=== PATIENT | male | born 1995 | race African-American/Black ===

== ENCOUNTER 2022-11-12 19:53 | Inpatient (IN) | payer SELFPAY ==
[2022-11-12] MEDS ORDERED: HumaLOG 300 UNITS/3 ML VIAL SC SCH (20:30)
[2022-11-12] MEDS: Lactated Ringer's 1,000 ML IV SCH (20:36)
[2022-11-12] MEDS ORDERED: Acetaminophen 325 MG TAB PO PRN (21:23)
[2022-11-12] MEDS ORDERED: Ondansetron PF 4 MG/2 ML Vial IVP PRN (21:23)
[2022-11-12] MEDS ORDERED: Glucagon 1 MG/ML KIT IM PRN (21:23)
[2022-11-12] MEDS ORDERED: Dextrose 5% in Water 1,000 ML IV PRN (21:23)
[2022-11-12] MEDS ORDERED: Calcium Carbonate 500 MG ChewTAB PO PRN (21:23)
[2022-11-12] MEDS ORDERED: Dextrose 50% Abboject 50 ML SYRINGE SLOW IVP PRN (21:23)
[2022-11-12] MEDS ORDERED: Senokot S 8.6-50 MG TAB PO PRN (21:23)
[2022-11-12] MEDS ORDERED: Lisinopril 5 MG TAB PO SCH (21:45)
[2022-11-12] MEDS ORDERED: metFORMIN 500 MG TAB PO SCH (21:45)
[2022-11-12 22:24] VITALS: BMI 32.3
[2022-11-12] MEDS: HumaLOG 300 UNITS/3 ML VIAL SC PRN (23:57)
[2022-11-13 04:05] LABS: Phosphorus 3.3 mg/dL (2.3-4.7)
[2022-11-13 04:06] LABS: #Eosinphils 0.2 10x3/uL (0.0-0.5); #Monocytes 0.7 10x3/uL (0.0-1.1); #Neutrophils 1.6 10x3/uL (1.5-8.4); %Basophils 0.9 % (0.0-2.0); %Eosinophils 4.6 % (0.0-6.0); %Lymphocytes 42.4 % (18.0-47.0); %Monocytes 15.9 % (0.0-10.0); %Neutrophils 34.7 % (40.0-75.0); Hematocrit 38.3 % (38.8-50.0); Hemoglobin 13.4 g/dL (13.5-17.5); Mean Corpuscular Hemoglobin 26.7 pg (27.0-33.0); Mean Corpuscular Volume 76.3 fl (81.2-95.1); Mean Platelet Volume 10.2 fl (7.4-10.4); Platelet Count 258 10x3/uL (150-450); RBC Distribution Width 11.7 % (11.5-14.5); Red Blood Cell (RBC) Count 5.02 10x6/uL (4.32-5.72); White Blood Cell (WBC) Count 4.6 10x3/uL (3.5-10.5)
[2022-11-13 04:14] LABS: ALT (SGPT) 33 U/L (8-55); AST (SGOT) 44 U/L (5-34); Albumin 4.1 g/dL (3.5-5.0); Alkaline Phosphatase 107 U/L (40-110); Anion Gap 17 mmol/L (10-20); BUN (Urea Nitrogen) 11 mg/dL (8.9-20.6); Bilirubin, Total 0.7 mg/dL (0.2-1.2); Calc. Creatinine Clearance 149 mL/min (70-130); Calcium 9.7 mg/dL (7.8-10.44); Carbon Dioxide 22 mmol/L (22-29); Chloride 99 mmol/L (98-107); Cholesterol 153 mg/dl (< 200 Desired); Estimated GFR 108; Globulin 3.6 g/dL (2.4-3.5); Glucose 338 mg/dL (70-105); HDL Cholesterol 22 mg/dL (>60 Neg Risk); Magnesium 1.8 mg/dL (1.6-2.6); Potassium 4.2 mmol/L (3.5-5.1); Protein, Total 7.7 g/dL (6.0-8.3); Sodium 134 mmol/L (136-145); Triglycerides 572 mg/dL (Less than 150)
[2022-11-13] MEDS: Lactated Ringer's 1,000 ML IV SCH (04:24)
[2022-11-13] MEDS: HumaLOG 300 UNITS/3 ML VIAL SC PRN ×3 (04:24→11:37)
[2022-11-13 05:38] LABS: LDL Cholesterol, Calculated 17 mg/dL
[2022-11-13] MEDS ORDERED: Magnesium Sulfate/D5W 1 GM/100 ML BAG IVPB SCH (06:00)
[2022-11-13] MEDS: metFORMIN 500 MG TAB PO SCH ×2 (08:11→19:13)
[2022-11-13] MEDS ORDERED: Lisinopril 5 MG TAB PO SCH (09:00)
[2022-11-13] MEDS ORDERED: Lantus 1000 UNITS/10 ML VIAL SC SCH (11:00)
[2022-11-13] MEDS: HumaLOG 300 UNITS/3 ML VIAL SC SCH ×2 (12:12→16:18)
[2022-11-13 17:21] LABS: Hemoglobin A1c 10.5 % (4.0-6.0)
[2022-11-13] MEDS: Atorvastatin Calcium 40 MG TAB PO SCH (19:47)
[2022-11-13] MEDS: Insulin Regular 300 UNITS/3 ML VIAL SC PRN (19:47)
[2022-11-14] MEDS: Insulin Regular 300 UNITS/3 ML VIAL SC PRN ×5 (00:10→22:38)
[2022-11-14 03:56] LABS: #Basophils 0.1 10x3/uL (0.0-0.2); #Eosinphils 0.2 10x3/uL (0.0-0.5); #Monocytes 0.7 10x3/uL (0.0-1.1); #Neutrophils 1.4 10x3/uL (1.5-8.4); %Basophils 1.4 % (0.0-2.0); %Eosinophils 4.5 % (0.0-6.0); %Lymphocytes 44.3 % (18.0-47.0); %Monocytes 16.7 % (0.0-10.0); %Neutrophils 31.3 % (40.0-75.0); Hematocrit 41.1 % (38.8-50.0); Mean Corpuscular HGB CONC 34.1 g/dL (32.0-36.0); Mean Corpuscular Hemoglobin 26.3 pg (27.0-33.0); Mean Corpuscular Volume 77.1 fl (81.2-95.1); Mean Platelet Volume 10.2 fl (7.4-10.4); Platelet Count 262 10x3/uL (150-450); RBC Distribution Width 11.7 % (11.5-14.5); Red Blood Cell (RBC) Count 5.33 10x6/uL (4.32-5.72); White Blood Cell (WBC) Count 4.4 10x3/uL (3.5-10.5)
[2022-11-14 04:09] LABS: Anion Gap 15 mmol/L (10-20); BUN (Urea Nitrogen) 8 mg/dL (8.9-20.6); Calc. Creatinine Clearance 164 mL/min (70-130); Calcium 9.6 mg/dL (7.8-10.44); Carbon Dioxide 23 mmol/L (22-29); Chloride 100 mmol/L (98-107); Estimated GFR 119; Glucose 251 mg/dL (70-105); Sodium 134 mmol/L (136-145)
[2022-11-14 06:30] LABS: Potassium 4.3 mmol/L (3.5-5.1)
[2022-11-14] MEDS: metFORMIN 500 MG TAB PO SCH ×2 (08:13→18:05)
[2022-11-14] MEDS: Lisinopril 20 MG TAB PO SCH (08:14)
[2022-11-14] MEDS: Amlodipine 5 MG TAB PO SCH (08:14)
[2022-11-14] MEDS: HumaLOG 300 UNITS/3 ML VIAL SC SCH ×3 (08:14→18:05)
[2022-11-14] MEDS ORDERED: Lantus 1000 UNITS/10 ML VIAL SC SCH (09:00)
[2022-11-14] MEDS: Atorvastatin Calcium 40 MG TAB PO SCH (22:35)
[2022-11-15 03:45] LABS: #Basophils 0.1 10x3/uL (0.0-0.2); #Eosinphils 0.2 10x3/uL (0.0-0.5); #Monocytes 0.7 10x3/uL (0.0-1.1); #Neutrophils 1.5 10x3/uL (1.5-8.4); %Basophils 1.1 % (0.0-2.0); %Eosinophils 4.6 % (0.0-6.0); %Lymphocytes 45.5 % (18.0-47.0); %Monocytes 14.3 % (0.0-10.0); %Neutrophils 32.5 % (40.0-75.0); Hematocrit 43.4 % (38.8-50.0); Hemoglobin 14.6 g/dL (13.5-17.5); Mean Corpuscular HGB CONC 33.6 g/dL (32.0-36.0); Mean Corpuscular Volume 77.4 fl (81.2-95.1); Mean Platelet Volume 10.1 fl (7.4-10.4); Platelet Count 278 10x3/uL (150-450); RBC Distribution Width 11.9 % (11.5-14.5); Red Blood Cell (RBC) Count 5.61 10x6/uL (4.32-5.72); White Blood Cell (WBC) Count 4.5 10x3/uL (3.5-10.5)
[2022-11-15 03:47] LABS: Anion Gap 16 mmol/L (10-20); BUN (Urea Nitrogen) 9 mg/dL (8.9-20.6); Calc. Creatinine Clearance 168 mL/min (70-130); Calcium 9.9 mg/dL (7.8-10.44); Carbon Dioxide 21 mmol/L (22-29); Chloride 99 mmol/L (98-107); Estimated GFR 120; Glucose 245 mg/dL (70-105); Potassium 3.9 mmol/L (3.5-5.1); Sodium 132 mmol/L (136-145)
[2022-11-15] MEDS: Insulin Regular 300 UNITS/3 ML VIAL SC PRN (06:40)
[2022-11-15] MEDS: HumaLOG 300 UNITS/3 ML VIAL SC SCH ×3 (08:46→16:53)
[2022-11-15] MEDS: Amlodipine 5 MG TAB PO SCH (08:47)
[2022-11-15] MEDS: metFORMIN 500 MG TAB PO SCH ×2 (08:47→16:54)
[2022-11-15] MEDS: Lisinopril 20 MG TAB PO SCH (08:47)
[2022-11-15] MEDS ORDERED: Lantus 1000 UNITS/10 ML VIAL SC SCH ×2 (09:00)
[2022-11-15 17:40] VITALS: BP 132/83; TEMP 98.5
== END 2022-11-15 17:40 | disposition home or self-care (01) | DRG 638 ==
LOC: CSHIMCU 19:53 → CSHTELE 11-14 12:39
PROVIDERS: ADMIT Hospitalist; ATTEND Internal Medicine
DX: E11.00 Type 2 diabetes mellitus with hyperosmolarity without nonketotic hyperglycemic-hyperosmolar coma (NKHHC) (principal); E87.1 Hypo-osmolality and hyponatremia; N17.9 Acute kidney failure, unspecified; E11.65 Type 2 diabetes mellitus with hyperglycemia; E86.0 Dehydration; E87.5 Hyperkalemia; F12.10 Cannabis abuse, uncomplicated; I45.6 Pre-excitation syndrome; Z90.49 Acquired absence of other specified parts of digestive tract; Z98.890 Other specified postprocedural states; Z83.3 Family history of diabetes mellitus
CPT/HCPCS: 36415; 36416; 80048; 80053; 80061; 83036; 83735; 84100; 84443; 85025; 93005; 93010; J1650; J1815; J3475; J7120